=== PATIENT | male | born 1955 | race Caucasian/White ===

== ENCOUNTER 2018-03-08 08:32 | Observation (INO) | payer OTHER, MEDICARE ==
[~2018-03-08] VITALS: Ht 152.4 cm; Wt 70.8 kg
[~2018-03-08 08:32] MED LIST: ASPIRIN81 M4 PO; CARAFATE1 G1 PO; DEPAKOTE500 M1 PO; FERROUS SULFAT325 M3 PO; KEPPRA500 MG/5 M IV; PHOS-NAK PACKE1 EACH PO; PRAVACHOL40 M1 PO; RISPERDAL0.25 M1 PO; SEROQUEL200 M1 PO; ZOFRAN ODT4 M1 PO
--- NOTE | 2018-03-08 08:50 | ED GENERAL ADULT ---
History of Present Illness General Chief Complaint: General Adult Stated Complaint: PER NURSE RN BSN TOOK WRONG MEDS EVAL Source: patient, old records, ALF STAFF Exam Limitations: no limitations Vital Signs & Intake/Output Vital Signs & Intake/Output Vital Signs Date Time Temp Pulse Resp B/P B/P Pulse O2 O2 Flow FiO2 Mean Ox Delivery Rate 03/08 1550 97.1 68 18 90/53 98 Room Air 03/08 1520 72 98/59 03/08 1443 71 100/55 03/08 1348 74 153/84 03/08 1345 97.0 68 20 98/56 98 Room Air 03/08 1301 97.1 62 18 91/57 98 Room Air 03/08 1240 66 96/57 03/08 1217 67 91/53 03/08 1137 62 90/55 03/08 1117 97.0 58 18 105/66 98 Room Air 03/08 1105 65 95/63 03/08 1041 68 102/62 03/08 1017 72 94/62 03/08 1000 97.0 64 18 87/53 98 Room Air 03/08 0945 66 18 83/50 97 Room Air 03/08 0931 68 96/57 03/08 0926 68 85/53 03/08 0919 97 Room Air 03/08 0918 70 108/67 03/08 0908 Room Air 03/08 0841 96.0 73 20 108/75 96 Room Air Allergies Coded Allergies: No Known Allergies (11/01/15) Reconcile Medications Aspirin (Aspirin*) 81 MG TAB.CHEW 1 TAB PO DAILY HEART HEALTH (Reported) Divalproex Sodium (Depakote) 500 MG TABLET.DR 1 TAB PO BID MENTAL HEALTH ( Reported) Ferrous Sulfate 325 MG (65 MG IRON) TABLET 1 TAB PO DAILY ANEMIA (Reported) Levetiracetam (Keppra) 500 MG/5 ML VIAL 1,000 MG IV Q12 SEIZURE D/O Naph,Mb-Db/K pH,Mbdb (Phos-Nak Packet) 280 MG-160 MG-250 MG POWD.PACK 250 MG PO PC AND AT BEDTIME SUPLEMENT Ondansetron (Zofran Odt) 4 MG TAB.RAPDIS 1 TAB PO Q6 PRN NAUSEA Pravastatin Sodium (Pravachol) 40 MG TABLET 1 TAB PO DAILY HYPERLIPIDEMIA ( Reported) Quetiapine Fumarate (Seroquel) 200 MG TABLET 1 TAB PO QPM MENTAL HEALTH ( Reported) Risperidone (Risperdal) 0.25 MG TABLET 1 TAB PO QPM MENTAL HEALTH (Reported) Sucralfate (Carafate) 1 GRAM TABLET 1 TAB PO TID GI HEALTH (Reported) Triage Note: PT TO ED WITH ALF STAFF S/P ACCIDENTALLY TAKING THE WRONG MEDS AT 0730 THIS AM. PT TOOK OXYBUTIN, VITAMIN D, ATENOLOL, NORVASC AND COZAAR. PT NORMALLY DOESN'T TAKE BP MEDS. PT HAS NO PAIN, NO COMPLAINTS. BP 108/75. Triage Nurses Notes Reviewed? yes HPI: Patient accidentally took somebody else medications this morning. Patient was sent in from a [place] [facility] for evaluation. Patient denies any suicidal or homicidal ideations. Patient is, cooperative. Past History Travel History Traveled to [facility] past 21 day No Medical History Any Pertinent Medical History? 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 No Review of Systems Review of Systems Constitutional: Reports: no symptoms. Respiratory: Reports: no symptoms. Cardiovascular: Reports: no symptoms. Musculoskeletal: Reports: no symptoms. Neurological/Psychological: Reports: no symptoms. Immunologic/Allergic: Reports: no symptoms. Physical Exam Physical Exam General Appearance: well developed/nourished, no apparent distress, alert, awake Head: atraumatic, normal appearance Eyes: Bilateral: PERRL, EOMI. Ears, Nose, Throat: normal pharynx, normal ENT inspection, hearing grossly normal Neck: normal inspection, supple, full range of motion Respiratory: normal breath sounds, chest non-tender, no respiratory distress, lungs clear Cardiovascular: regular rate/rhythm, normal peripheral pulses Gastrointestinal: normal bowel sounds, soft, non-tender Back: normal inspection, normal range of motion Extremities: normal inspection, normal capillary refill, normal range of motion, no edema Neurologic/Psych: no motor/sensory deficits, awake, alert, oriented x 3 Skin: intact, normal color, warm/dry Core Measures ACS in differential dx? No CVA/TIA Diagnosis: No Sepsis Present: No Sepsis Focused Exam Completed? No Progress Differential Diagnoses I considered the following diagnoses in my evaluation of the patient: [ Accidental medication ingestion] Plan of Care: Orders Procedure Date/time Status Regular Diet 03/08 L Active Discharge Patient 03/[address] in observation 03/08 1448 Active Patient Data 03/08 1448 Active ED Holding Orders 03/08 1256 Active Vital Signs 03/08 1256 Active Code Status 03/08 125 Active Intake & Output 03/08 0919 Active Initial ED EKG: none Departure Departure Disposition: HOME OR SELF CARE Condition: Stable Clinical Impression Primary Impression: Drug ingestion, accidental Secondary Impressions: Hypotension Referrals: Joe Carcamo MD (PCP/Family) Additional Instructions: Return for any concerns. Departure Forms: Customer Survey General Discharge Information Critical Care Note Critical Care Note Critical Care Time: non-applicable ED Attending Observation Initial Observation Note: I have seen and personally examined VJ SIERRA on 03/08/18 at 1311. I agree with the current emergency department documentation. The disposition (admission or discharge) is uncertain at this time, he needs a period of observation for the following reason(s): [Accidental ingestion of somebody else' s medications. Patient took antihypertensives and is now hypotensive however he is responding to IV fluids. Patient will need close monitoring to make sure his blood pressure response. Unknown at this point if the patient will require admission or feel is stable for discharge.] The ED Nurse caring for this patient has been personally informed as to what the patient is being observed for. Observation Re-Evaluation: I have reevaluated VJ SIERRA on 03/08/18 at 1409. The physical findings that support the continued need to observe this patient include [blood pressure is improving. We'll continue to monitor.]. Observation Discharge: I have reevaluated VJ SIERRA on 03/08/18 at 1607. The patient is: ([X]): Stable for discharge (): To be admitted to Nursing Floor (): To be placed in Observation on Nursing Floor (): For transfer to other facility The patient was being observed for [hypotension after accidental medication ingestion.] As a result of that observation, I have determined [stable for discharge.].
[2018-03-08 15:50] VITALS: BP 90/53
== END 2018-03-08 20:42 ==
LOC: ERH 08:32 → ERHI 12:56
DX: T46.5X1A Poisoning by other antihypertensive drugs, accidental (unintentional), initial encounter (principal); I95.9 Hypotension, unspecified; E78.5 Hyperlipidemia, unspecified; K21.9 Gastro-esophageal reflux disease without esophagitis; K22.70 Barrett's esophagus without dysplasia; F41.9 Anxiety disorder, unspecified; F32.9 Major depressive disorder, single episode, unspecified; F43.20 Adjustment disorder, unspecified; F79 Unspecified intellectual disabilities; E11.9 Type 2 diabetes mellitus without complications; D64.9 Anemia, unspecified; Z79.82 Long term (current) use of aspirin
CPT/HCPCS: 96360; 96361; G0378

== ENCOUNTER 2018-04-08 14:05 | Inpatient (IN) | payer OTHER, MEDICARE ==
[~2018-04-08] VITALS: Ht 160 cm; Wt 70.5 kg
--- NOTE | 2018-04-08 14:41 | ED GENERAL ADULT ---
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 Exam Limitations: MR Vital Signs & Intake/Output Vital Signs & Intake/Output Vital Signs Date Time Temp Pulse Resp B/P B/P Pulse O2 O2 Flow FiO2 Mean Ox Delivery Rate 04/08 1412 97.9 71 18 136/79 100 Room Air Allergies Coded Allergies: No Known Allergies (11/01/15) Reconcile Medications Aspirin (Aspirin*) 81 MG TAB.CHEW 1 TAB PO DAILY HEART HEALTH (Reported) Divalproex Sodium (Depakote) 500 MG TABLET.DR 1 TAB PO BID MENTAL HEALTH ( Reported) Ferrous Sulfate 325 MG (65 MG IRON) TABLET 1 TAB PO DAILY ANEMIA (Reported) Levetiracetam (Keppra) 500 MG/5 ML VIAL 1,000 MG IV Q12 SEIZURE D/O Naph,Mb-Db/K pH,Mbdb (Phos-Nak Packet) 280 MG-160 MG-250 MG POWD.PACK 250 MG PO PC AND AT BEDTIME SUPLEMENT Ondansetron (Zofran Odt) 4 MG TAB.RAPDIS 1 TAB PO Q6 PRN NAUSEA Pravastatin Sodium (Pravachol) 40 MG TABLET 1 TAB PO DAILY HYPERLIPIDEMIA ( Reported) Quetiapine Fumarate (Seroquel) 200 MG TABLET 1 TAB PO QPM MENTAL HEALTH ( Reported) Risperidone (Risperdal) 0.25 MG TABLET 1 TAB PO QPM MENTAL HEALTH (Reported) Sucralfate (Carafate) 1 GRAM TABLET 1 TAB PO TID GI HEALTH (Reported) Triage Note: BROUGHT IN BY OFFICE FROM CARDIOLOGY OFFICE. HAD 6 EPISODES OF SYNCOPE LASTING 20-30 SECONDS EACH DURING CHEMICAL STRESS TEST. DENIES ANY COMPLAINTS AT THIS TIME. Triage Nurses Notes Reviewed? yes HPI: 62-year-old male with past medical history of MR, cardiac history, seizure history; presents from staff psychiatrist's office after 3 episodes of syncope during a dobutamine stress test. Per caregiver witnessed the patient passed out for about 2030 seconds each time and then came back without any residual deficits. Patient denies any chest pain, shortness of breath, nausea or vomiting. Cardiologiest Dr Smith with [facility]. Per the caregiver the syncopal episode is not like his typical seizure. Past History Travel History Traveled to [place] past 21 day No Medical History Any Pertinent Medical History? 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 No Review of Systems Review of Systems Constitutional: Reports: no symptoms, see HPI. EENTM: Reports: no symptoms. Respiratory: Reports: no symptoms. Cardiovascular: Reports: no symptoms. GI: Reports: no symptoms. Genitourinary: Reports: no symptoms. Musculoskeletal: Reports: no symptoms. Skin: Reports: no symptoms. Neurological/Psychological: Reports: no symptoms. Hematologic/Endocrine: Reports: no symptoms. Immunologic/Allergic: Reports: no symptoms. All Other Systems: Reviewed and Negative Physical Exam Physical Exam General Appearance: well developed/nourished, no apparent distress, comfortable Comments: Gen.: Well-nourished, well-developed, no acute respiratory distress. Head: Normocephalic, atraumatic. Eyes: Normal inspection bilaterally Ears: Normal inspection bilaterally Nose: Normal inspection Throat/mouth : Moist mucosa Neck: Supple, full range of motion, no goiter Heart: Regular rate and rhythm, no murmurs rubs or gallops Lungs: Clear to auscultation bilaterally with normal air entry Chest: Nontender Back: Normal range of motion Abdomen: Soft, nontender, nondistended, normal bowel sounds Extremities: Normal range of motion grossly, equal radial pulses, no cyanosis clubbing or edema Neurologic: Cranial nerves grossly intact, speech is clear Skin: warm and dry Psychiatric: Calm, cooperative, no apparent delusions or hallucinations Core Measures ACS in differential dx? No CVA/TIA Diagnosis: No Sepsis Present: No Sepsis Focused Exam Completed? No Progress Differential Diagnoses I considered the following diagnoses in my evaluation of the patient: During my care of this patient I considered the following differential diagnoses: Cardiac syncope/dysrhythmia but the patient had a prodromal phase and the EKG and telemetry showed no dysrhythmia, there were no significant electrolyte abnormalities, and the patient denied heart palpitations. In addition patient had 2 troponin levels that were normal. Obstructive hypertrophic cardiomyopathy but there was no history of syncope with exercise, dyspnea or chest pain on exertion, palpitations or history of cardiac disease or heart murmur. Aortic stenosis but the patient is no history of syncope after exercise and denied dyspnea/chest pain/syncope, had no crescendo decrescendo systolic murmur or precordial thrill. Subclavian steal syndrome but the patient denied arm pain or paresthesias and physical examination showed no pulse deficit. Carotid sinus hypersensitivity but physical examination reveals no goiter or other neck mass. Plan of Care: Orders Procedure Date/time Status Heart Healthy Diet 04/08 D Active Admit to inpatient 04/08 1528 Active Patient Data 04/08 1520 Active Saline Lock 04/08 141 Active URINE DRUG SCREEN FOR ER ONLY 04/08 141 Complete TROPONIN LEVEL 04/08 141 Active PARTIAL THROMBOPLASTIN TIME 04/08 141 Active PROTHROMBIN TIME 04/08 141 Active MAGNESIUM 04/08 1416 Active ETHANOL 04/08 1416 Active COMPREHENSIVE METABOLIC PANEL 04/08 141 Active CBC WITHOUT DIFFERENTIAL 04/08 141 Complete EKG 04/08 141 Active Laboratory Tests 04/08/18 1455: Anion Gap 8, Estimated GFR > 60, BUN/Creatinine Ratio 20.0, Glucose 134 H, Calcium 9.0, Magnesium 2.1, Total Bilirubin 0.6, AST 19, ALT 24, Alkaline Phosphatase 36, Troponin I Pending, Total Protein 6.2 L, Albumin 3.6, Globulin 2.6, Albumin/Globulin Ratio 1.4, PT Pending, INR Pending, APTT Pending, CBC w Diff NO MAN DIFF REQ, RBC 4.08 L, MCV 93.6, MCH 32.5 H, MCHC 34.7, RDW 13.8, MPV 8.0, Gran % 75.3 H, Lymphocytes % 17.0 L, Monocytes % 5.9, Eosinophils % 1.3, Basophils % 0.5, Absolute Granulocytes 2.7, Absolute Lymphocytes 0.6 L, Absolute Monocytes 0.2, Absolute Eosinophils 0, Absolute Basophils 0, Serum Alcohol < 10.0 04/08/18 1446: Urine Opiates Screen < 100, Methadone Screen < 40, Barbiturate Screen < 60, Ur Phencyclidine Scrn < 6.00, Amphetamines Screen < 100, U Benzodiazepines Scrn < 85, Urine Cocaine Screen < 50, Urine Cannabis Screen < 5.00 04/08/18 1416: Urine Test Cancelled Initial ED EKG: normal axis, normal intervals, normal p-waves, normal QRS complex, Inverted t-wave in 3 and aVF which was present on prior ECG. Comments: Mr Guzman has a cardiac history and experience syncopal episodes during a stress test. Patient to be admitted to telemetry for further observation and evaluation. Departure Departure Disposition: STILL A PATIENT Condition: Stable Clinical Impression Primary Impression: Syncope Qualifiers: Syncope type: unspecified Qualified Code: R55 - Syncope and collapse Referrals: Joe Carcamo MD (PCP/Family) Departure Forms: Customer Survey General Discharge Information Critical Care Note Critical Care Note Critical Care Time: non-applicable
--- NOTE | 2018-04-08 15:00 | RADIOLOGY REPORT ---
EXAMINATION: XR PORTABLE CHEST CLINICAL INFORMATION: Syncope. COMPARISON: None TECHNIQUE: Portable frontal view of the chest was obtained. FINDINGS: Both lungs of fairly well-expanded and clear of acute process. The heart size and pulmonary vascularity is normal. No gross bony abnormality seen. IMPRESSION: Unremarkable chest exam.
--- NOTE | 2018-04-08 15:04 | History & Physical ---
TimurМария 04/08/18 1503: General Information and HPI History of Present Illness: Ross Guzman is a 62 YO male with a PMHx. of mental retardation currently in a snf at [place], hyperlipidemia, GERD, Polanco's esophagus, diabetes, adjustment disorder, depression, anxiety who presented today with a chief complaint of multiple episodes of syncope while having stress test at Dr. Smith's Cardiology office today. Patient is accompanied by his caregiver who states he was having a stress today at the cardiolgist office where the nurses at the office noticed the patient had 2-3 episodes of "passing out" for around 20-30 seconds each time. Patient's caregiver however states patient sometimes feigns illness to get attention and sometimes to get evaluated in a hospital. Patient further denies any active chest pain, lightheadedness, shortness of breath, abdominal pain, n/v, fevers, and fatigue. Patient follows up with Dr. Smith (Cardiology). 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 Allergies/Medications Allergies: Coded Allergies: No Known Allergies (11/01/15) Past History Travel History Traveled to [place] past 21 day No Medical History Neurological: NONE EENT: rhinitis Cardiovascular: hyperlipidemia Respiratory: NONE Gastrointestinal: GERD, POLANCO'S ESOPHAGUS Hepatic: NONE Renal: NONE Musculoskeletal: NONE Psychiatric: anxiety, depression, ADJUSTMENT DISORDER INTELLECTUAL DISABILITIES Endocrine: diabetes Blood Disorders: anemia Cancer(s): NONE DIGITAL IMAGER/Reproductive: NONE History of MRSA: No History of VRE: No History of CDIFF: No Surgical History Surgical History: non-contributory Past Family/Social History Psychosocial History Where do you live? Other (snf) Primary Language: Urdu Review of Systems Review of Systems Constitutional: Denies: chills, fever, malaise. EENTM: Denies: no symptoms. Cardiovascular: Denies: chest pain, orthopena, palpitations. Respiratory: Denies: cough, short of breath. GI: Denies: abdominal pain, diarrhea, nausea, vomiting. Musculoskeletal: Denies: back pain. Skin: Denies: no symptoms. Neurological/Psychological: Denies: confusion, headache. Exam & Diagnostic Data Last 24 Hrs of Vital Signs/I&O Vital Signs Date Time Temp Pulse Resp B/P B/P Pulse O2 O2 Flow FiO2 Mean Ox Delivery Rate 04/08 1636 98.1 63 20 117/73 96 Room Air 04/08 1626 98.2 88 18 126/73 99 04/08 1412 97.9 71 18 136/79 100 Room Air Intake & Output 04/08 1600 04/08 0800 04/08 0000 Intake Total 0 Output Total Balance 0 Intake, Oral 0 Physical Exam General Appearance Alert, Oriented X3, Cooperative, No Acute Distress Skin No Rashes, No Breakdown Skin Temp/Moisture Exam: Warm/Dry HEENT Atraumatic Neck Supple, No JVD Cardiovascular Regular Rate, Normal S1, Normal S2 Lungs Clear to Auscultation Abdomen Soft, No Tenderness Neurological Normal Speech, Strength at 5/5 X4 Ext, Sensation Intact Extremities No Edema, Normal Pulses Assessment/Plan Assessment: CXR - Unremarkable chest exam. 62 YO male with a PMHx. of mental retardation currently in a snf at [place], hyperlipidemia, GERD, Polanco's esophagus, diabetes, adjustment disorder, depression, anxiety who presented today with a chief complaint of multiple episodes of syncope while having stress test at an outpatient Cardiology office. Labs on admission: WBC 3.6; H/H 13.3/38.2; Cr 0.6; K+ 4.3 Patient admitted to telemetry for the following reasons: #Syncope, witnessed by nurses at Cardiology outpatient office -Admitted to telemetry for monitoring of vitals -Vitals qshift -Serial Troponin/EKG -Cardiology consulted -ECHO; follow up -Unlikely seizure however Depakote level 23.4 (low); will consult neurology in future if any indication of seizure-like activity that might have provoked syncopal episode #Home medications -Continue home medications as required Code Status: Full Code Heart Healthy Diet DVT PPx. As Ranked By This Provider Problem List: 1. Syncope Qualifiers Syncope type: unspecified Qualified Code: R55 - Syncope and collapse Core Measures/Misc (04/03) Acute Coronary Syndrome ACS Diagnosis: No Congestive Heart Failure Congestive Heart Failure Diagnosis No Cerebrovascular Accident CVA/TIA Diagnosis: No VTE (View Protocol) VTE Risk Factors Acute Medical Illness No Mechanical VTE Prophylaxis d/t N/A MechProphylax Ordered No VTE Pharm Prophylaxis d/t NA PharmProphylax ordered Sepsis (View protocol) Sepsis Present: No If YES complete Sepsis Event Note If YES complete Sepsis Event Note Leda De Oliveira MD 04/08/18 1607: General Information and HPI Allergies/Medications Home Med list Acetaminophen (Tylenol Extra Strength) 500 MG TABLET 650 MG PO Q4H PRN PAIN OR FEVER (Reported) Aspirin (Aspirin*) 81 MG TAB.CHEW 1 TAB PO DAILY HEART HEALTH (Reported) Bacitracin 500 UNIT/GRAM OINT...G. 1 UNIT EXT BID PRN WOUND CARE (Reported) Cetirizine HCl (All Day Allergy) 10 MG TABLET 1 TAB PO BEDTIME PRN ALLERGY SX (Reported) Cyanocobalamin (Vitamin B-12) 1,000 MCG TABLET 1 TAB PO DAILY VITAMIN ( Reported) Divalproex Sodium (Depakote) 500 MG TABLET.DR 1 TAB PO DAILY seizure ( Reported) Esomeprazole (Nexium) 40 MG CAPSULE.DR 40 MG PO BID STOMACH (Reported) Fluticasone Propionate (Cutivate) 0.05 % CREAM..G. 1 SPRAY IN DAILY SINUS CONGESTION (Reported) Guaifenesin (Mucus ER) 600 MG TAB.ER.12H 1 TAB PO BID PRN COUGH (Reported) Guaifenesin (Adult Wal-Tussin) 100 MG/5 ML LIQUID 2 TSP PO Q4H PRN COUGH ( Reported) Hydrocortisone 1 % CREAM..G. 1 UNIT EXT BID PRN ITCHING (Reported) Ibuprofen 400 MG TABLET 2 TAB PO Q6H PRN PAIN OR FEVER (Reported) Loperamide HCl (Loperamide) 2 MG CAPSULE 2 CAP PO PRN DIARRHEA (Reported) Magnesium Carbonate/Al Hydrox (Antacid Extra Strength Chw Tab) 105 MG-160 MG TAB.CHEW 1 TAB PO Q4H PRN INDIGESTION (Reported) Multiple Vitamin (Multivitamins) 1 EACH TABLET 1 TAB PO DAILY VITAMINS ( Reported) Naph,Mb-Db/K pH,Mbdb (Phos-Nak Packet) 280 MG-160 MG-250 MG POWD.PACK 250 MG PO PC AND AT BEDTIME SUPLEMENT Ondansetron (Zofran Odt) 4 MG TAB.RAPDIS 1 TAB PO Q6 PRN NAUSEA Pravastatin Sodium (Pravachol) 40 MG TABLET 1 TAB PO DAILY HYPERLIPIDEMIA ( Reported) Pseudoephedrine HCl (Nasal Decongestant) 30 MG CAPSULE 1 TAB PO Q4H PRN CONGESTION (Reported) Quetiapine Fumarate (Seroquel) 200 MG TABLET 1 TAB PO QPM MENTAL HEALTH ( Reported) Sennosides/Docusate Sodium (Senexon-S Tablet) 8.6 MG-50 MG TABLET 1 TAB PO QPM PRN CONSTIPATION (Reported) Sucralfate (Carafate) 1 GRAM TABLET 1 TAB PO TID GI HEALTH (Reported) Sucralfate (Carafate) 1 GRAM TABLET 1 TAB PO TID STOMACH (Reported) Zinc Oxide/Moro Starch (Caldesene Baby Powder) 15 %-81 % POWDER 1 UNIT EXT BID PRN ITCHING (Reported) Core Measures/Misc (04/03) Sepsis (View protocol) If YES complete Sepsis Event Note If YES complete Sepsis Event Note Resident Review Statement Resident Statement: examined this patient, discussed with internal combustion engine subassembler Other Findings: This is a 62-year-old gentleman with mental retardation residing in a snf at [place] with past medical history of hyperlipidemia, GERD, Polanco's esophagus but, diabetes, adjustment disorder, depression, anxiety presented with multiple episodes of syncope while having stress test at Dr. Smith office today morning. Collateral history obtained from Dr. smith and the caregiver. Patient came to [facility] in February 2018 with abdominal pain and found to have volvulus and hence sent to [facility]. According to the caregiver patient had partial colon resection. Postoperatively due to hypokalemia and hypomagnesemia and had cardiac arrest. Patient was referred to a pickling solution maker. The this month patient got echocardiogram and Holter monitoring -both results were normal according to the pickling solution maker. Patien had a dog vitamin stress test today and had 3 episodes of 20-30 seconds of syncope. There was no evidence of any generalized tonic-clonic seizures/post ictal confusion/incontinence. During that time vitals EKG were normal. No resuscitation or medications were given during the same time. According to the caregiver he says that patient often times"acts up". Patient whenever he decides to go to hospital he ate her voluntarily vomits or lies on the floor until 911 is being called. According to her yesterday he was saying that he wants to go to the hospital. According to the caregiver she says these syncopal episodes can be one of those"act up" Patient last admitted in [facility] in January 2017 for acute episode of diarrhea. Patient denies chest pain/chest pressure/abdominal pain/nausea/vomiting/fever/ cough/weakness/numbness/tingling sensation. According to the caregiver patient is independent at baseline. He doesn't use cane/walker. She denied any decline in his function, fever, decreased appetite him on nausea, vomiting, abdominal pain, chest pressure. She said his appetite is good. Admission vitals Temperature 97.9, pulse rate 71, respiratory rate 18, blood pressure 136/79, saturating 100 at room air Admission labs CBC Chemistry U tox Coagulation profile Imaging Chest x-ray unremarkable CT abdomen and pelvis in 2017 Large left inguinal hernia, Partial SBO.Partial SBO-patient was immediately sent to [facility] for volvulus repair. Patient post surgery developed cardiac arrest secondary due to hypokalemia and hypomagnesemia and was intubated. Following discharge patient was referred for Holter/echo/stress test. Endoscopy done in 2017-showed Polanco's esophagus with no esophagitis and hiatal hernia ED treatment: None On examination Patient lying in the bed comfortably No evidence of any acute distress Able to answer questions appropriately most of the time CVS-S1-S2 no murmur Respiratory system-normal vesicular breath sounds per abdomen-soft no tenderness INTERIOR DESIGN CONSULTANT-3-12 cranial nerves intact. Lower extremity-no edema. Gait-not checked Assessment and plan 1. Syncope * Admitted in telemetry * Every shift vitals * Troponin and EKG * Cardiology consult * Echocardiogram * Follow-up electrolytes * At this point this episode is unlikely seizure/postictal state. We will check Depakote level. If the patient has any further episodes of any seizures or syncopal episode we will call neurology. 2. Continue his home medications Aspirin Depakote Ferrous sulfate Ondansetron Pravastatin Quetiapine Sucralfate Patient is full code according to the caregiver. Patient has a court-appointed guardian.
[2018-04-08 15:18] LABS: ABSOLUTE BASOPHIL COUNT 0 /CUMM (0.0-0.2); ABSOLUTE EOSINOPHIL COUNT 0 /CUMM (0.0-0.7); ABSOLUTE GRANULOCYTE CT 2.7 /CUMM (1.4-6.5); ABSOLUTE LYMPH COUNT 0.6 /CUMM (1.2-3.4); ABSOLUTE MONOCYTE COUNT 0.2 /CUMM (0.10-0.60); BASOPHIL % 0.5 % (0.0-2.0); EOSINOPHIL % 1.3 % (0-5); GRANULOCYTE % 75.3 % (42.2-75.2); HEMATOCRIT 38.2 % (42-52); MEAN CORPUSCULAR HGB 32.5 PG (27.0-31.0); MEAN CORPUSCULAR HGB CONC 34.7 G/DL (33.0-37.0); MEAN CORPUSCULAR VOLUME 93.6 FL (80.0-94.0); PLATELET COUNT 206 /CUMM (130-400); RBC DISTRIBUTION WIDTH 13.8 % (11.5-14.5); RED BLOOD CELL CT 4.08 /CUMM (4.70-6.10); WHITE BLOOD CELL COUNT 3.6 /CUMM (4.8-10.8)
[2018-04-08 15:31] LABS: PT 12.6 SEC (9.4-12.5); PTT 30 SEC (25-37)
[2018-04-08] MEDS ORDERED: VITAMIN B-121000 MC3 PO (16:13)
[2018-04-08] MEDS ORDERED: MULTIVITAMINS1 EAC9 PO (16:13)
[2018-04-08] MEDS ORDERED: CUTIVATE30 GM IN (16:13)
[2018-04-08] MEDS ORDERED: CARAFATE1 G1 PO (16:14)
[2018-04-08] MEDS ORDERED: NEXIUM40 M1 PO (16:14)
[2018-04-08] MEDS ORDERED: SENEXON-S TABL1 EACH PO (16:15)
[2018-04-08] MEDS ORDERED: MUCUS ER600 M1 PO (16:15)
[2018-04-08] MEDS ORDERED: ALL DAY ALLERGY10 MG PO (16:16)
[2018-04-08] MEDS ORDERED: ANTACID EXTRA1 EACH PO (16:17)
[2018-04-08] MEDS ORDERED: CALDESENE BABY142 GM EXT (16:18)
[2018-04-08] MEDS ORDERED: HYDROCORTISO453.6 G1 EXT (16:18)
[2018-04-08] MEDS ORDERED: BACITRACIN28.4 GM EXT (16:19)
[2018-04-08] MEDS ORDERED: LOPERAMIDE2 M2 PO (16:19)
[2018-04-08] MEDS ORDERED: NASAL DECONGEST30 M2 PO (16:20)
[2018-04-08] MEDS ORDERED: ADULT WAL-100 MG/5 M PO (16:21)
[2018-04-08] MEDS ORDERED: IBUPROFEN400 M1 PO (16:21)
[2018-04-08] MEDS ORDERED: TYLENOL EXTRA500 M2 PO (16:22)
[2018-04-08 17:05] VITALS: BP 102/64
[2018-04-08 19:15] VITALS: BP 92/60
[2018-04-08 20:10] VITALS: BP 102/58
--- NOTE | 2018-04-08 21:07 | Event Note ---
Event Note Event Note: Situation: There was a rapid response for 178. Background: The patient is a 62-year-old man with a past medical history significant for mental retardation, hyperlipidemia, GERD, Truong's esophagus, diabetes, adjustment disorder, depression, anxiety, who presented to ED with chief complaint of multiple episodes of syncope while having a stress test. Assessment: The patient was lying back in his bed, alert and oriented 3, in no acute distress. The nurse mentioned that the patient had some abnormal movements with his eyes starting, but not talking to her. She was able to follow her with his eyes while having this problem. Patient does not report any headache, dizziness, nausea, vomiting, chest pain, chest pressure, chest tightness, shortness of breath, palpitation, abdominal pain, or any abdominal pain. Later the nurse mentioned that the patient says that he is going to pass out and acts like closing his eyes, but when the nurse goes out, he opens his eyes looking for the nurse and he asked if all the people are going back to his room. I do not believe it was a seizure or TIA. Telemetry did not show any normal finding in heart rate. I examined the patient he did not have any focal neurological deficit. He is mentally retarded, but is able to follow commands. Recommendation: Watch the patient closely, he has a history of diabetes, blood sugar was checked which was 120, he does not have any electrolyte abnormality. He is on valproic acid. It is unlikely to be new onset seizure in this 62-year-old patient, in case it is found to be seizure, brain imaging should be done. Dr. Cinthia Bergeron - plan after discussion with attending - * Symptoms does not look like seizure episode, telemetry did not show any evidence of arrhythmia. * Patient need 24 hour EEG monitoring to rule out any seizure episode * We gave a dose of valproic acid state and increased to 500 mg twice daily
--- NOTE | 2018-04-08 22:43 | Admission Certification ---
Admission Certification Certification Statement - As attending physician, I certify that at the time of - admission, based on clinical presentation, severity of - symptoms, need for further diagnostic testing and - therapeutic interventions, and risk of adverse outcomes - without in-hospital treatment, in my clinical assessment, - this patient requires an acute hospital stay for a minimum - of two nights or longer. I have also considered psychsocial - factors such as support system, advanced age, financial - issues, cognitive issues, and failed out-patient treatments, - past re-admission history, safety of patient, and lack of - compliance as applicable. Specific rationale supporting this admission is: possible syncopal episode
[2018-04-09 06:46] VITALS: BP 101/59
[2018-04-09 08:49] LABS: ABSOLUTE BASOPHIL COUNT 0 /CUMM (0.0-0.2); ABSOLUTE EOSINOPHIL COUNT 0.1 /CUMM (0.0-0.7); ABSOLUTE LYMPH COUNT 1.5 /CUMM (1.2-3.4); ABSOLUTE MONOCYTE COUNT 0.3 /CUMM (0.10-0.60); BASOPHIL % 0.3 % (0.0-2.0); EOSINOPHIL % 2.9 % (0-5); MEAN PLATELET VOLUME 8.3 FL (7.4-10.4); RBC DISTRIBUTION WIDTH 14.3 % (11.5-14.5); WHITE BLOOD CELL COUNT 3.9 /CUMM (4.8-10.8)
--- NOTE | 2018-04-09 08:51 | PN- Housestaff ---
Noah STOKES,[facility] 04/09/18 0850: Subjective Follow-up For: Syncope ?? Seizure Tele-Events Since Last Visit: No overnight events. Subjective: Patient denies any active complaints. Wants to go home today after lunch. Review of Systems Constitutional: Reports: no symptoms. EENTM: Reports: no symptoms. Cardiovascular: Reports: no symptoms. Respiratory: Reports: no symptoms. Gastrointestinal: Reports: no symptoms. Genitourinary: Reports: no symptoms. Musculoskeletal: Reports: no symptoms. Objective Last 24 Hrs of Vital Signs/I&O Vital Signs Date Time Temp Pulse Resp B/P B/P Pulse O2 O2 Flow FiO2 Mean Ox Delivery Rate 04/09 0800 96 Room Air 04/09 0646 97.5 57 20 101/59 96 Room Air 04/08 2200 Room Air 04/08 2010 98.9 73 20 102/58 99 Room Air 04/08 1915 98.6 70 18 92/60 96 Room Air 04/08 1800 96 Room Air 04/08 1705 98.2 84 16 102/64 100 Room Air 04/08 1636 98.1 63 20 117/73 96 Room Air 04/08 1626 98.2 88 18 126/73 99 04/08 1412 97.9 71 18 136/79 100 Room Air Intake & Output 04/09 1600 04/09 0800 04/09 0000 Intake Total 240 Output Total Balance 240 Intake, Oral 240 Number 1 Bowel Movements Patient 152 lb Weight Weight Bed scale Measurement Method Physical Exam General Appearance: Alert, Cooperative, No Acute Distress Skin: No Rashes, No Breakdown Cardiovascular: Regular Rate, Normal S1, Normal S2 Lungs: Clear to Auscultation, Normal Air Movement Abdomen: Normal Bowel Sounds, Soft, No Tenderness Extremities: No Clubbing, No Cyanosis, Normal Pulses Current Medications: Current Medications Sig/Elisa Start time Last Medication Dose Route Stop Time Status Admin Acetaminophen 650 MG Q6P PRN 04/08 1600 AC PO Aspirin 81 MG DAILY 04/09 0900 AC 04/09 PO 0813 Atorvastatin Calcium 20 MG 1700 04/08 1700 AC 04/08 PO 1756 Divalproex Sodium 500 MG BID 04/08 2100 AC 04/09 PO 0813 Divalproex Sodium 500 MG ONCE ONE 04/08 2030 CAN PO 04/08 2031 Divalproex Sodium 500 MG DAILY 04/08 1554 DC PO Heparin Sodium 5,000 UNIT Q8 04/08 1601 AC 04/09 (Porcine) SC 0536 Ibuprofen 600 MG Q6P PRN 04/08 1600 AC PO Omeprazole 40 MG DAILY AC 04/08 1634 AC 04/09 PO 0536 Oxycodone/ 1 TAB Q6 PRN 04/08 1600 AC Acetaminophen PO Quetiapine Fumarate 200 MG QPM 04/08 2100 AC 04/08 PO 2108 Risperidone 0.25 MG QPM 04/08 2100 CAN PO Sodium Chloride 2 SPRAY DAILY 04/08 1645 AC 04/09 LIZ 0814 Sucralfate 1,000 MG AC 04/08 1734 AC 04/09 PO 0536 Sucralfate 1,000 MG TID 04/08 1555 DC PO Last 24 Hrs of Lab/Maurisio Results Last 24 Hrs of Labs/Mics: Laboratory Tests 04/09/18 0645: Anion Gap 5, Estimated GFR > 60, BUN/Creatinine Ratio 16.7, Magnesium 2.2, CBC w Diff NO MAN DIFF REQ, RBC 3.91 L, MCV 89.3, MCH 30.3, MCHC 33.9, RDW 14.3, MPV 8.3, Gran % 51.0, Lymphocytes % 37.3, Monocytes % 8.5, Eosinophils % 2.9, Basophils % 0.3, Absolute Granulocytes 2.0, Absolute Lymphocytes 1.5, Absolute Monocytes 0.3, Absolute Eosinophils 0.1, Absolute Basophils 0 04/08/18 2135: Troponin I < 0.01 04/08/18 1455: Anion Gap 8, Estimated GFR > 60, BUN/Creatinine Ratio 20.0, Glucose 134 H, Calcium 9.0, Magnesium 2.1, Total Bilirubin 0.6, AST 19, ALT 24, Alkaline Phosphatase 36, Troponin I < 0.01, Total Protein 6.2 L, Albumin 3.6, Globulin 2.6, Albumin/Globulin Ratio 1.4, Prolactin 28.6 H, PT 12.6 H, INR 1.15, APTT 30, CBC w Diff NO MAN DIFF REQ, RBC 4.08 L, MCV 93.6, MCH 32.5 H, MCHC 34.7, RDW 13.8, MPV 8.0, Gran % 75.3 H, Lymphocytes % 17.0 L, Monocytes % 5.9, Eosinophils % 1.3, Basophils % 0.5, Absolute Granulocytes 2.7, Absolute Lymphocytes 0.6 L, Absolute Monocytes 0.2, Absolute Eosinophils 0, Absolute Basophils 0, Valproic Acid 23.4 L, Serum Alcohol < 10.0 04/08/18 1446: Urine Opiates Screen < 100, Methadone Screen < 40, Barbiturate Screen < 60, Ur Phencyclidine Scrn < 6.00, Amphetamines Screen < 100, U Benzodiazepines Scrn < 85, Urine Cocaine Screen < 50, Urine Cannabis Screen < 5.00 04/08/18 1416: Urine Test Cancelled Assessment/Plan Assessment: 62 YO male with a PMHx. of mental retardation currently in a jail at [place], hyperlipidemia, GERD, Truong's esophagus, diabetes, adjustment disorder, depression, anxiety who presented today with a chief complaint of multiple episodes of syncope while having stress test at an outpatient Cardiology office. Labs on admission: WBC 3.6; H/H 13.3/38.2; Cr 0.6; K+ 4.3. Patient admitted to telemetry for the following reasons: #Syncope VS Seizure; Witnessed by nurses at Cardiology outpatient office. - Patient had an episode of ?? Syncope VS Seizure last night. Patient did not have any seizure like activity or Loss of consciousness at that time and telemtry was negative for any acute events but prolactin level was elevated and given low divalproex level(23.4) dose was increased from 500 daily to BID. - Patient medically stable to be discharged home today but will stay tonight per [facility]'s request(do not accept pts on weekends) Will discharge the patient home tomorrow with outpatient follow up with neurology in case of any further similar episodes. Discussed in detail with resort manager. -Vitals qshift. -Serial Troponin/EKG x 3 remained negative. #Chronic medical conditions. - Continue home medications. Code Status: Full Code Heart Healthy Diet DVT PPx. Problem List: 1. Syncope Pain Ratin Pain Location: NA Pain Goal: Remain pain free Pain Plan: NA Tomorrow's Labs & Rationales: RODOLFO Meyer MD,Amir 04/09/18 1132: Attending MD Review Statement Attending Statement Attending MD Statement: examined this patient, discuss w/resident/PA/SUPERVISOR SLASHING DEPARTMENT, agreed w/resident/PA/SUPERVISOR SLASHING DEPARTMENT, reviewed EMR data (avail), discussed with nursing Attending Assessment/Plan: Pt was seen, AAOx3, wants to go home --will need neuro f/u as outpt --can be discharged to his jail today --rest of the plan as per resident's note
[2018-04-09 09:28] LABS: HEMATOCRIT 34.9 % (42-52); PLATELET COUNT 180 /CUMM (130-400); RED BLOOD CELL CT 3.91 /CUMM (4.70-6.10)
[2018-04-09 09:29] LABS: MEAN CORPUSCULAR HGB 30.3 PG (27.0-31.0); MEAN CORPUSCULAR HGB CONC 33.9 G/DL (33.0-37.0); MEAN CORPUSCULAR VOLUME 89.3 FL (80.0-94.0)
[2018-04-09] MEDS ORDERED: DIVALPROEX SOD500 M2 PO (10:26)
--- NOTE | 2018-04-09 10:29 | Patient Discharge Instructions ---
Discharge Instructions General Discharge Information You were seen/treated for: Syncope Special Instructions: Please follow up with your PCP within a week after discharge. Please follow up with your Neurologist in case of any further episodes of seizures/syncope. Referral has been provided. Diet Continue normal diet: Yes Activity Full Activity/No Limits: Yes Activity Self Limited: Yes Acute Coronary Syndrome Inclusion Criteria At DC or during hospital stay patient has or had the following: ACS DIAGNOSIS No Discharge Core Measures Meds if any: Prescribed or Continued at Discharge Meds if any: NOT Prescribed or Continued at Discharge Congestive Heart Failure Inclusion Criteria At DC or during hospital stay patient has or had the following: CHF DIAGNOSIS No Discharge Core Measures Meds if any: Prescribed or Continued at Discharge Meds if any: NOT Prescribed or Continued at Discharge Cerebrovascular accident Inclusion Criteria At DC or during hospital stay patient has or had the following: CVA/TIA Diagnosis No Discharge Core Measures Meds if any: Prescribed or Continued at Discharge Meds if any: NOT Prescribed or Continued at Discharge Venous thromboembolism Inclusion Criteria VTE Diagnosis No VTE Type NONE VTE Confirmed by (Test) NONE Discharge Core Measures - Per Current guidelines, there needs to be overlap - treatment for the first 5 days of Warfarin therapy. - If discharged on Warfarin prior to 5 days of - overlap therapy, the patient will need to be - assessed for post discharge needs including - *Post discharge parental anticoagulation - *Warfarin and/or parental anticoagulation education - *Follow up date to check INR post discharge At least 5 days overlap therapy as Inpatient No Meds if any: Prescribed or Continued at Discharge Note: Overlap Therapy is Warfarin and Anticoagulant Meds if any: NOT Prescribed or Continued at Discharge
--- NOTE | 2018-04-09 13:37 | Discharge Summary ---
Visit Information Visit Dates Admission Date: 04/08/18 Discharge Date: 04/10/18 Hospital Course Course Attending Physician: Maria Dolores Meyer MD Primary Care Physician: Dona STOKES,[facility] Course: This is a 62-year-old gentleman with mental retardation residing in a assisted at [place] with past medical history of hyperlipidemia, GERD, Truong's esophagus but, diabetes, adjustment disorder, depression, anxiety presented with multiple episodes of syncope while having stress test at Dr. Smith office today morning. 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 He did have a rapid response called on 04/08/18 where patient had some abnormal movements with his eyes staring, but not talking to the nurse. He did not have any seizure like activity, LOC or focal neurological deficits on exam at that time. He did have an elevated prolactin level of 28.6. His dose of depakote was increased to twice daily for concerns of seizure given elevated prolactin at that time (which he is apparently taking for a mood disorder). Patient was advised to follow up with the Neurologist as an outpatient for the need of a 24 hr EEG monitoring if he continues to have these episodes. Allergies: Coded Allergies: No Known Allergies (11/01/15) Significant Procedures: XRY-PORTABLE CHEST XRAY IMPRESSION: Unremarkable chest exam. Disposition Summary Disposition Principal Diagnosis: ?? Seizure disorder Additional Diagnosis: Chronic medical conditions Discharge Disposition: home or self care Discharge Instructions General Discharge Information Code Status: Full Code Patient's Diet: Diabetic Patient's Activity: As tolerated Follow-Up Instructions/Appts: Please follow up with your PCP within a week after discharge. Please follow up with your Neurologist in case of any further episodes of seizures/syncope. Referral has been provided. Medications at Discharge Discharge Medications: Stop taking the following medications: Ondansetron (Zofran Odt) 4 MG TAB.RAPDIS ORAL EVERY SIX HOURS as needed for NAUSEA Qty = 20 Sucralfate (Carafate) 1 GRAM TABLET ORAL THREE TIMES DAILY Divalproex Sodium (Depakote) 500 MG TABLET.DR ORAL DAILY Guaifenesin (Mucus ER) 600 MG TAB.ER.12H ORAL TWICE DAILY as needed for COUGH Guaifenesin (Adult Wal-Tussin) 100 MG/5 ML LIQUID ORAL Q4H as needed for COUGH Continue taking these medications: Aspirin (Aspirin*) 81 MG TAB.CHEW 1 Tablet ORAL DAILY Comments: Last Taken: 04/10/18 Time: 0830 Pravastatin Sodium (Pravachol) 40 MG TABLET 1 Tablet ORAL DAILY Comments: Last Taken: 02/13/17 Time: 171 Quetiapine Fumarate (Seroquel) 200 MG TABLET 1 Tablet ORAL Every night Comments: Last Taken: 04/10/18 Time: 2054 Naph,Mb-Db/K pH,Mbdb (Phos-Nak Packet) 280 MG-160 MG-250 MG POWD.PACK 250 Milligram ORAL AFTER MEALS AND AT BEDTIME Days = 30 Comments: Last Taken: 02/13/17 Time: 2129 NOTY GIVEN THIS VISIT TO HOSPITAL 04/10/18 Fluticasone Propionate (Cutivate) 0.05 % CREAM..G. 1 [place] IN VITRO DAILY Comments: NOT GIVEN IN HOSPITAL Multiple Vitamin (Multivitamins) 1 EACH TABLET 1 Tablet ORAL DAILY Comments: NOT GIVEN IN HOSPITAL Cyanocobalamin (Vitamin B-12) 1,000 MCG TABLET 1 Tablet ORAL DAILY Comments: NOT GIVEN IN HOSPITAL Esomeprazole (Nexium) 40 MG CAPSULE.DR 40 Milligram ORAL TWICE DAILY Comments: NOT GIVEN IN HOSPITAL Sucralfate (Carafate) 1 GRAM TABLET 1 Tablet ORAL THREE TIMES DAILY Sennosides/Docusate Sodium (Senexon-S Tablet) 8.6 MG-50 MG TABLET 1 Tablet ORAL Every night as needed for CONSTIPATION Comments: NOT GIVEN IN HOSPITAL Cetirizine HCl (All Day Allergy) 10 MG TABLET 1 Tablet ORAL as needed for ALLERGY SX Comments: NOT GIVEN IN HOSPITAL Magnesium Carbonate/Al Hydrox (Antacid Extra Strength Chw Tab) 105 MG-160 MG TAB.CHEW 1 Tablet ORAL Q4H as needed for INDIGESTION Comments: NOT GIVEN IN HOSPITAL Hydrocortisone (Hydrocortisone) 1 % CREAM..G. 1 Unit ON SKIN TWICE DAILY as needed for ITCHING Comments: NOT GIVEN IN HOSPITAL Zinc Oxide/Flint Starch (Caldesene Baby Powder) 15 %-81 % POWDER 1 Unit ON SKIN TWICE DAILY as needed for ITCHING Comments: NOT GIVEN IN HOSPITAL Bacitracin (Bacitracin) 500 UNIT/GRAM OINT...G. 1 Unit ON SKIN TWICE DAILY as needed for WOUND CARE Comments: NOT GIVEN IN HOSPITAL Loperamide HCl (Loperamide) 2 MG CAPSULE 2 Capsule ORAL as needed for DIARRHEA Comments: NOT GIVEN IN HOSPITAL Pseudoephedrine HCl (Nasal Decongestant) 30 MG CAPSULE 1 Tablet ORAL Q4H as needed for CONGESTION Comments: NOT GIVEN IN HOSPITAL Ibuprofen (Ibuprofen) 400 MG TABLET 2 Tablet ORAL Q6H as needed for PAIN OR FEVER Comments: NOT GIVEN IN HOSPITAL Acetaminophen (Tylenol Extra Strength) 500 MG TABLET 650 Milligram ORAL Q4H as needed for PAIN OR FEVER Comments: NOT GIVEN IN HOSPITAL Start taking the following new medications: Divalproex Sodium (Divalproex Sodium) 500 MG TABLET.DR 1 Tablet ORAL TWICE DAILY Qty = 30 No Refills Instructions: . Comments: Last Taken:04/10/18 Time:0830 Copies To: Lorene STOKES,Sajan Felder Attending Review Statement Other Findings: This was assigned to me in error. I am not the attending taking care of this patient.
[2018-04-09 14:21] VITALS: BP 110/76
[2018-04-09 23:13] VITALS: BP 104/70
[2018-04-10 06:20] VITALS: BP 108/68
--- NOTE | 2018-04-10 07:54 | PN- Housestaff ---
Subjective Follow-up For: Syncope Subjective: Afebrile overnight. Patient is seen and examined this morning. No telemetry events overnight. Patient this morning denies any chest pain, shortness of breath, and palpitations. Patient states he is waiting for his breakfast and then after a brief moment fails to communicate after several questions are posed to him. Review of Systems Constitutional: Reports: see HPI. Objective Last 24 Hrs of Vital Signs/I&O Vital Signs Date Time Temp Pulse Resp B/P B/P Pulse O2 O2 Flow FiO2 Mean Ox Delivery Rate 04/10 0620 98.2 66 12 108/68 97 Room Air 04/09 2313 98.9 75 16 104/70 98 Room Air 04/09 1600 96 Room Air 04/09 1421 97.9 74 18 110/76 96 Room Air Intake & Output 04/10 1600 04/10 0800 04/10 0000 Intake Total 120 780 Output Total Balance 120 780 Intake, Oral 120 780 Number 1 Bowel Movements Patient 155 lb Weight Physical Exam General Appearance: Alert, Oriented X3, Cooperative, No Acute Distress Skin: No Rashes, No Breakdown Skin Temp/Moisture Exam: Warm/Dry HEENT: Atraumatic Neck: Supple, No JVD Cardiovascular: Regular Rate, Normal S1, Normal S2 Lungs: Clear to Auscultation Abdomen: Soft, No Tenderness Neurological: Normal Speech Extremities: No Edema, Normal Pulses Assessment/Plan Assessment: 62 YO male with a PMHx. of mental retardation currently in a shelter at [place], hyperlipidemia, GERD, Truong's esophagus, diabetes, adjustment disorder, depression, anxiety who presented today with a chief complaint of multiple episodes of syncope while having stress test at an outpatient Cardiology office. Labs on admission: WBC 3.6; H/H 13.3/38.2; Cr 0.6; K+ 4.3. Patient admitted to telemetry for the following reasons: #Syncope vs Seizure; Witnessed by nurses at Cardiology outpatient office. - Patient had an episode of questionable Syncope VS Seizure last night. Patient did not have any seizure like activity or Loss of consciousness at that time and telemtry was negative for any acute events but prolactin level was elevated and given low divalproex level(23.4) dose was increased from 500 daily to BID. - Patient medically stable to be discharged home today. Will discharge the patient home today with outpatient follow up with neurology in case of any further similar episodes. Discussed in detail with fast food manager. -Vitals qshift. -Serial Troponin/EKG x 3 remained negative. #Chronic medical conditions. - Continue home medications. Code Status: Full Code Heart Healthy Diet DVT PPx. Problem List: 1. Syncope Pain Ratin Pain Location: na Pain Goal: Remain pain free Pain Plan: prn meds Tomorrow's Labs & Rationales: routine
[2018-04-10 14:25] VITALS: BP 118/64
[2018-04-10] MEDS ORDERED: DIVALPROEX SOD500 M2 PO (14:57)
== END 2018-04-10 14:55 | DRG 101 ==
LOC: DELPENDDIS → ERH 14:05 → 1NO 15:28 → ERHI 15:28 → ENRESERV 15:55 → ENTRNSPT 16:42 → EDTRNSPTSTS 16:45 → 1NO 16:54 → CMPTRNSPT 17:07 → ENPENDDIS 04-09 11:16 → 1NO 04-09 12:46 → ENTRNSPT 04-10 14:38 → EDTRNSPT 04-10 14:50 → EDTRNSPTSTS 04-10 14:50 → 1NO 04-10 14:55 → CMPTRNSPT 04-10 15:27
PROVIDERS: Emergency Medicine; Student in an Organized Health Care Education/Training Program
DX: G40.909 Epilepsy, unspecified, not intractable, without status epilepticus (principal); R55 Syncope and collapse; F79 Unspecified intellectual disabilities; F32.9 Major depressive disorder, single episode, unspecified; E78.5 Hyperlipidemia, unspecified; K21.9 Gastro-esophageal reflux disease without esophagitis; K22.70 Barrett's esophagus without dysplasia; F43.20 Adjustment disorder, unspecified; Z90.49 Acquired absence of other specified parts of digestive tract; E11.9 Type 2 diabetes mellitus without complications; F41.9 Anxiety disorder, unspecified
CPT/HCPCS: 1NP; 36592; 71045; 80307; 81025; 82436; 93005; 93010; 94799; G0480; J1644; J3490